=== PATIENT | female | born 1970 | race Hispanic/Latino ===

== ENCOUNTER → 2024-07-18 | Outpatient (CLI) | payer BC ==
--- NOTE | 2024-07-20 19:45 | HMCSR ---
APPROVED REPORT EXAM: Two-dimensional and M-mode echocardiogram with Doppler and color Doppler. INDICATION ICD: R55 Syncope and collapse 2D Dimensions RVDd2.9 cmLVEF(%)64.0 (>50%)LVED Vol(simp.)78.0 mL IVSd0.8 (0.7-1.1cm)FS(%)35 %LVES Vol(simp.)31.0 mL LVDd4.4 (3.8-5.6cm)Ao Root(2D)2.3 (2.0-3.7cm)LVEF(%, simp.)61 % PWd0.9 (0.7-1.1cm)LVOT diam1.8 (1.8-2.4cm)LA ESV INDEX (BP)31.20 mL/m2 LVDs2.9 (2.5-4.0cm)IVC diam1.7 cm Aortic Valve AoV Vmax1.4 m/Keith Peak GR7.4 mmHgLVOT Vmax1.1 m/s AoV VTI0.3 mAo Mean GR3.9 mmHgLVOT VTI0.26 m SHANTAL (VMAX)1.98 cm2AVA (VTI) 2.0 cm2 Mitral Valve MV E Vmax72.4 cm/sDECEL Ugfa320 ms MV A Vmax49.3 cm/sP 1/2 T60 ms E/A ratio1.5MVA (PHT)3.7 cm2 TDI E/E' Medial7.6E/E' Lateral6.5 Lateral E' Peak V11.07 cm/s Pulmonary Valve PV Vmax0.8 m/sPV VTI0.20 mPV Mean GR2.0 mmHg PV Peak GR2.5 mmHg Tricuspid Valve TR Vmax2.1 m/sRAP (EST) 3 qaUqFPRO42.0 mmHg TR Peak GR18.0 mmHg Left Ventricle Left ventricular cavity size is normal. There is normal left ventricular wall thickness. LVEF is 60-6 5%. Left ventricular filling pattern is normal for age. Right Ventricle The right ventricle is normal size. The right ventricular systolic function is normal. Atria The left atrium size is normal. The right atrium size is normal. Aortic Valve Aortic valve is trileaflet. Aortic valve leaflets are sclerotic but open well. No aortic regurgitatio n is present. There is no aortic valvular stenosis. Mitral Valve Mitral valve leaflets are mildly sclerotic but open well. Mitral regurgitation is trace. There is no mitral valve stenosis. Tricuspid Valve The tricuspid valve leaflets appear normal. There is trace tricuspid regurgitation. Pulmonic Valve Pulmonic valve is not well visualized. Great Vessels The aortic root is normal in size. The IVC is normal in size and collapses >50% with inspiration. Pericardium No pericardial effusion. Conclusion Left ventricular cavity size is normal. LVEF is 60-65%. Left ventricular filling pattern is normal for age. The right ventricle is normal size. The right ventricular systolic function is normal. The left atrium size is normal. The right atrium size is normal. No valvular pathology. No pericardial effusion.
== END | disposition home or self-care (01) ==
LOC: SHCH 10:47
PROVIDERS: ATTEND Student in an Organized Health Care Education/Training Program
DX: I08.0 Rheumatic disorders of both mitral and aortic valves (principal); R55 Syncope and collapse
CPT/HCPCS: 93306